=== PATIENT | female | born 1990 | race American Indian/Alaskan Native ===

== ENCOUNTER 2016-07-27 04:36 | Emergency (ER) | payer BC, MEDICAID ==
[2016-07-27 04:41] VITALS: BMI 41.3
[2016-07-27] MEDS ORDERED: Sodium Chloride 0.9% 1,000 ML IV STA (04:50)
--- NOTE | 2016-07-27 04:58 | ED PDOC ---
Arrival/HPI - General Chief Complaint: Abdominal Pain Time Seen by Provider: 07/27/16 04:37 Historian: Patient - History of Present Illness Narrative History of Present Illness (Text): 07/27/16 05:00 Sylvia Sellers, a 26 year old female presents to the emergency department complaining of worsening epigastric abdominal pain for the past two days. Patient is obese and reports nausea, vomiting and diarrhea. Patient denies hematochezia, shortness of breath, back pain, or any other complaints at this time. Time/Duration: < week Symptom Onset: Sudden Symptom Course: Unchanged Activities at Onset: Rest Modifying Factors (Text): none Context: Home Associated Symptoms (Text): nausea, vomit, diarrhea Past Medical History - Provider Review Nursing Documentation Reviewed: Yes - Infectious Disease Hx of Infectious Diseases: None - Tetanus Immunization Tetanus Immunization: Unknown - Cardiac Hx Cardiac Disorders: No - Pulmonary Hx Respiratory Disorders: Yes Hx Asthma: Yes Hx Bronchitis: Yes - Neurological Hx Neurological Disorder: Yes Hx Migraine: Yes - Renal Hx Renal Disorder: Yes Hx Kidney Stones: Yes - Endocrine/Metabolic Hx Endocrine Disorders: No - Hematological/Oncological Hx Blood Disorders: No - Integumentary Hx Dermatological Disorder: No - Musculoskeletal/Rheumatological Hx Musculoskeletal Disorders: No Hx Falls: No - Gastrointestinal Hx Gastrointestinal Disorders: No - Genitourinary/Gynecological Hx Genitourinary Disorders: No - Psychiatric Hx Psychophysiologic Disorder: No Hx Substance Use: No - Past Surgical History Past Surgical History: No Previous - Surgical History Other/Comment: episiotomy; lithotripsy - Anesthesia Hx Anesthesia: Yes Hx Anesthesia Reactions: No Hx Malignant Hyperthermia: No - Suicidal Assessment Feels Threatened In Home Enviroment: No Family/Social History - Physician Review Nursing Documentation Reviewed: Yes Family/Social History: No Known Family HX Smoking Status: Never Smoked Hx Alcohol Use: Yes Hx Substance Use: No Hx Substance Use Treatment: No Allergies/Home Meds Allergies/Adverse Reactions: Allergies amoxicillin trihydrate [From Augmentin] Allergy (Verified 07/27/16 04:45) SWELLING mushroom Allergy (Verified 07/27/16 04:46) SWELLING potassium clavulanate [From Augmentin] Allergy (Verified 07/27/16 04:45) SWELLING Home Medications: Home Meds Medication Instructions Recorded Confirmed Albuterol HFA [Ventolin HFA 90 2 puff INH PRN PRN 10/05/15 07/27/16 mcg/actuation (8 g)] SUMAtriptan [Imitrex Tab] 1 tab PO PRN PRN 10/05/15 07/27/16 Review of Systems - Physician Review All systems were reviewed & negative as marked: Yes - Review of Systems Respiratory: absent: SOB Gastrointestinal: Abdominal Pain (epigastric), Diarrhea, Nausea, Vomiting. absent: Hematochezia Musculoskeletal: absent: Back Pain Physical Exam Vital Signs Reviewed: Yes Vital Signs Temp Pulse Resp BP Pulse Ox 07/27/16 09:55 99 F 62 18 106/62 98 07/27/16 07:26 99.1 F 86 18 110/58 L 97 07/27/16 06:32 95 H 20 106/59 L 99 07/27/16 05:18 98.7 F 104 H 17 113/56 L 100 07/27/16 05:00 98.5 F 101 H 18 111/56 L 97 07/27/16 04:37 98 F 104 H 18 113/56 L 100 Temperature: Afebrile Blood Pressure: Hypotensive Pulse: Tachycardic Respiratory Rate: Normal Appearance: Positive for: Well-Appearing, Non-Toxic, Comfortable Pain Distress: None Mental Status: Positive for: Alert and Oriented X 3 - Systems Exam Head: Present: Atraumatic, Normocephalic Pupils: Present: PERRL Extroacular Muscles: Present: EOMI Conjunctiva: Present: Normal Mouth: Present: Moist Mucous Membranes Neck: Present: Normal Range of Motion Respiratory/Chest: Present: Clear to Auscultation, Good Air Exchange. No: Respiratory Distress, Accessory Muscle Use Cardiovascular: Present: Tachycardic. No: Murmurs Abdomen: Present: Tenderness (epigastric). No: Rebound, Guarding Upper Extremity: Present: Normal Inspection. No: Cyanosis, Edema Lower Extremity: Present: Normal Inspection. No: Edema Neurological: Present: GCS=15, CN II-XII Intact, Speech Normal Skin: Present: Warm, Dry, Normal Color. No: Rashes Psychiatric: Present: Alert, Oriented x 3, Normal Insight, Normal Concentration Medical Decision Making ED Course and Treatment: 07/27/16 05:00 Impression: 26 year old female with epigastric abdominal pain. Differential Diagnosis include but are not limited to: Plan: -- Urinalysis -- Labs -- Protonix, IV fluids, and Zofran -- Reassess and disposition Prior Visits: Notes and results from previous visits were reviewed. Patient was last presented to emergency department on 10/06/15 for evaluation of abdominal pain. Patient was seen by Dr. Quintana. Patient's CT abd/pelvis showed incomplete distention of the urinary bladder with prominent wall thickening; pericystic induration; cystitis cannot be excluded. Progress Notes: - Lab Interpretations Lab Results: 07/27/16 06:06 07/27/16 07:00 Lab Results 07/27/16 07:00: Sodium 138, Potassium 3.5 L, Chloride 105, Carbon Dioxide 22, Anion Gap 15, BUN 7, Creatinine 0.6, Est GFR ( Amer) > 60, Est GFR (Non- Af Amer) > 60, Random Glucose 107, Calcium 8.5, Total Bilirubin 0.6, AST 81 H, ALT 59 H, Alkaline Phosphatase 102, Total Protein 7.2, Albumin 3.7, Globulin 3.5 , Albumin/Globulin Ratio 1.1, Lipase 122 07/27/16 06:06: WBC 12.9 H D, RBC 4.38, Hgb 12.1, Hct 37.1, MCV 84.7, MCH 27.6, MCHC 32.6, RDW 14.4, Plt Count 448, MPV 10.4, Gran % 86.4 H, Lymph % (Auto) 7.4 L, [place] % (Auto) 5.3, Eos % (Auto) 0.7 L, Baso % (Auto) 0.2, Gran # 11.15 H, Lymph # 1.0 L, [place] # 0.7 H, Eos # 0.1, Baso # 0.02, PT 11.4, INR 1.06, APTT 22.7 L 07/27/16 05:10: Urine Color Yellow, Urine Appearance Cloudy, Urine pH 6.0, Ur Specific [place] >= 1.030, Urine Protein Trace H, Urine Glucose (UA) Negative, Urine Ketones Negative, Urine Blood Trace-intact H, Urine Nitrate Negative, Urine Bilirubin Negative, Urine Urobilinogen 0.2, Ur Leukocyte Esterase Moderate H, Urine RBC 0 - 2, Urine WBC 1 - 3, Ur Epithelial Cells Many, Urine Bacteria Mod, Urine HCG, Qual Negative - RAD Interpretation Radiology Orders: 07/27/16 06:54 ABD & PELVIS IV CONTRAST ONLY [CT] Stat - Medication Orders Current Medication Orders: Discontinued Medications Sodium Chloride (Sodium Chloride 0.9%) 1,000 mls @ 1,000 mls/hr IV .Q1H STA Stop: 07/27/16 05:49 Last Admin: 07/27/16 05:17 Dose: 1,000 MLS/HR eMAR Start Stop Document 07/27/16 05:17 [facility] (Rec: 07/27/16 05[id number] Intravenous Solution Start Date 07/27/16 Start Time 05:17 End Date 07/27/16 End time 06:17 Total Infusion Time 60 Iohexol (Omnipaque 350 100 Ml) Confirm Administered Dose 350 mg .ROUTE .STK-MED ONE Stop: 07/27/16 08:14 Ondansetron HCl (Zofran Inj) 4 mg IVP STAT STA Stop: 07/27/16 04:52 Last Admin: 07/27/16 05:17 Dose: 4 MG IVP Administration Document 07/27/16 05:17 [facility] (Rec: 07/27/16 05:17 [id number] Charges for Administration # of IVP Administrations 1 Pantoprazole Sodium (Protonix Inj) 40 mg IVP STAT STA Stop: 07/27/16 04:51 Last Admin: 07/27/16 05:17 Dose: 40 MG IVP Administration Document 07/27/16 05:17 [facility] (Rec: 07/27/16 05:17 [id number] Charges for Administration # of IVP Administrations 1 Potassium Chloride (K-Dur 20 Meq Er Tab) 20 meq PO STAT STA Stop: 07/27/16 09:42 Last Admin: 07/27/16 10:02 Dose: 20 MEQ - Scribe Statement The provider has reviewed the documentation as recorded by the Jagjit Parker All medical record entries made by the Jagjit were at my direction and personally dictated by me. I have reviewed the chart and agree that the record accurately reflects my personal performance of the history, physical exam, medical decision making, and the department course for this patient. I have also personally directed, reviewed, and agree with the discharge instructions and disposition. Disposition/Present on Arrival - Present on Arrival Any Indicators Present on Arrival: No History of DVT/PE: No History of Uncontrolled Diabetes: No Urinary Catheter: No History of Decub. Ulcer: No History Surgical Site Infection Following: None - Disposition Have Diagnosis and Disposition been Completed?: Yes Diagnosis: Abdominal pain Disposition: HOME/ ROUTINE Disposition Time: 07:00 Condition: IMPROVED Discharge Instructions (ExitCare): Gastroenteritis (DC), Acute Abdominal Pain ( DC) Additional Instructions: Ms Sellers, thank you for letting us take care of you today. Your provider was Dr. Fontaine and Dr. Mcnulty. You were treated for Abdominal Pain, Gastroenteritis. The emergency medical care you received today was directed at your acute symptoms. If you were prescribed any medication, please fill it and take as directed. It may take several days for your symptoms to resolve. Return to the Emergency Department if your symptoms worsen, do not improve, or if you have any other problems. Please contact your doctor or call one of the physicians/clinics you have been referred to that are listed on the Patient Visit Information form that is included in your discharge packet. Bring any paperwork you were given at discharge with you along with any medications you are taking to your follow up visit. Our treatment cannot replace ongoing medical care by a primary care provider (PCP) outside of the emergency department. Thank you for allowing the [facility] team to be part of your care today. If you had an X-Ray or CT scan: A Radiologist will review the ED reading if any change in treatment is needed we will contact you. If you had a blood, urine, or wound culture: It will take several days for the results, if any change in treatment is needed we will contact you. If you had an STI test: It will take 48 hours for the results. Please call after 1 week if you have not heard back. Prescriptions: Ranitidine HCl [Zantac] 150 mg PO BID PRN #30 tablet PRN Reason: Pain, Mild (1-3) Ondansetron ODT [Zofran ODT] 4 mg PO Q6 #14 odt Referrals: Katrina Arndt DO [Primary Care Provider] - Follow up with primary Forms: WORK NOTE
[2016-07-27 06:07] LABS: ADD MANUAL DIFF? NO
[2016-07-27 06:11] LABS: BASO # 0.02 K/mm3 (0.0-2.0); BASO % 0.2 % (0.0-3.0); EOS # 0.1 (0.0-0.7); EOS % 0.7 % (1.5-5.0); GRAN # 11.15 (1.4-6.5); GRAN % 86.4 % (50.0-68.0); HEMATOCRIT 37.1 % (36.0-48.0); LYMPH % 7.4 % (22.0-35.0); MEAN CELL VOLUME 84.7 fL (80.0-105.0); MEAN CORPUSCULAR HEMOGLOBIN 27.6 pg (25.0-35.0); MEAN CORPUSCULAR HGB CONC 32.6 g/dl (31.0-37.0); MEAN PLATELET VOLUME 10.4 fl (7.0-11.0); MONO # 0.7 (0.1-0.6); MONO % 5.3 % (1.0-6.0); PLATELET COUNT 448 10^3/uL (120.0-450.0); RED CELL DISTRIBUTION WIDTH 14.4 % (11.5-14.5); WHITE BLOOD COUNT 12.9 10^3/ul (4.5-11.0)
[2016-07-27 06:21] LABS: INR 1.06 (0.93-1.08); PARTIAL THROMBOPLASTIN TIME 22.7 Seconds (23.7-30.8)
[2016-07-27 07:11] LABS: URINE BILIRUBIN NEGATIVE (NEGATIVE); URINE BLOOD TRACE-INTACT (NEGATIVE); URINE GLUCOSE (UA) NEGATIVE (NEGATIVE); URINE KETONE NEGATIVE (NEGATIVE); URINE LEUKOCYTE ESTERASE MODERATE Leu/uL (NEGATIVE); URINE PROTEIN TRACE mg/dL (<30 mg/dL); URINE UROBILINOGEN 0.2 E.U./dL (<1 E.U./dL)
[2016-07-27 07:13] LABS: URINE COLOR YELLOW (YELLOW)
[2016-07-27 07:14] LABS: URINE APPEARANCE CLOUDY (CLEAR)
--- NOTE | 2016-07-27 07:17 | ED PDOC ---
Physical Exam Vital Signs Temp Pulse Resp BP Pulse Ox 07/27/16 07:26 99.1 F 86 18 110/58 L 97 07/27/16 06:32 95 H 20 106/59 L 99 07/27/16 05:18 98.7 F 104 H 17 113/56 L 100 07/27/16 05:00 98.5 F 101 H 18 111/56 L 97 07/27/16 04:37 98 F 104 H 18 113/56 L 100 Medical Decision Making ED Course and Treatment: 07/27/16 07:00 Patient signed out to me by Dr. Fontaine. Pending labs and CT results. Reevaluation and Disposition to follow. 07/27/16 09:32 Procedure: CT abdomen pelvis dated 07/27/2016 Dictator: Bairon Moyer MD Impression: Small involuting and or hemorrhagic right ovarian cyst. Mild fatty hepatic infiltration. No evidence of acute appendicitis. 07/27/16 09:47 On re-evaluation, the patient feels better and is in no acute distress. Patient was advised to avoid fatty and spicy foods. I have discussed the results and plan with the patient, who expresses understanding. Patient in agreement with plan to discharged home. Patient is stable for discharge. Patient was instructed to follow up with physician/clinic in 1-2 days or return if symptoms worsen or new concerning symptoms such as fever or localized pain to the lower abdomen arise. - Lab Interpretations Lab Results: 07/27/16 06:06 07/27/16 07:00 Lab Results 07/27/16 07:00: Sodium 138, Potassium 3.5 L, Chloride 105, Carbon Dioxide 22, Anion Gap 15, BUN 7, Creatinine 0.6, Est GFR ( Amer) > 60, Est GFR (Non- Af Amer) > 60, Random Glucose 107, Calcium 8.5, Total Bilirubin 0.6, AST 81 H, ALT 59 H, Alkaline Phosphatase 102, Total Protein 7.2, Albumin 3.7, Globulin 3.5 , Albumin/Globulin Ratio 1.1, Lipase 122 07/27/16 06:06: WBC 12.9 H D, RBC 4.38, Hgb 12.1, Hct 37.1, MCV 84.7, MCH 27.6, MCHC 32.6, RDW 14.4, Plt Count 448, MPV 10.4, Gran % 86.4 H, Lymph % (Auto) 7.4 L, [place] % (Auto) 5.3, Eos % (Auto) 0.7 L, Baso % (Auto) 0.2, Gran # 11.15 H, Lymph # 1.0 L, [place] # 0.7 H, Eos # 0.1, Baso # 0.02, PT 11.4, INR 1.06, APTT 22.7 L 07/27/16 05:10: Urine Color Yellow, Urine Appearance Cloudy, Urine pH 6.0, Ur Specific [place] >= 1.030, Urine Protein Trace H, Urine Glucose (UA) Negative, Urine Ketones Negative, Urine Blood Trace-intact H, Urine Nitrate Negative, Urine Bilirubin Negative, Urine Urobilinogen 0.2, Ur Leukocyte Esterase Moderate H, Urine RBC 0 - 2, Urine WBC 1 - 3, Ur Epithelial Cells Many, Urine Bacteria Mod, Urine HCG, Qual Negative - RAD Interpretation Narrative RAD Interpretations (Text): 07/27/16 09:32 Procedure: CT abdomen pelvis dated 07/27/2016 Dictator: Bairon Moyer MD FINDINGS: LOWER THORAX: No basilar infiltrate effusion or pneumothorax. There is a tiny hiatal hernia. Heart size is within range of normal. No significant pericardial effusion identified. LIVER: Liver exhibits normal size measuring 15 cm in CC dimension. Mild diffuse fatty hepatic infiltration. No obvious hepatic mass or collection. Portal and splenic veins are opacified. GALLBLADDER AND BILE DUCTS: The gallbladder is physiologically distended. No evidence of intraluminal gallbladder calculi. PANCREAS: The pancreas is unremarkable without mass collection or calcification. SPLEEN: The spleen exhibits normal size and attenuation pattern without mass collection or calcification. ADRENALS: There are no adrenal lesions. KIDNEYS AND URETERS: Kidneys exhibit symmetric nephrograms. No evidence of nephrolithiasis or hydronephrosis. BLADDER: Urinary bladder is incompletely distended which may account for slight thick- walled appearance. Possibility of cystitis not excluded. REPRODUCTIVE: The uterus is unremarkable. There appears to be a small involuting and or hemorrhagic cyst right ovary measuring approximately 11 mm. APPENDIX: The appendix appears unremarkable best seen on axial image number [id number]. No periappendiceal inflammatory changes are identified. BOWEL: Unremarkable. No obstruction. No gross mural thickening. PERITONEUM: Unremarkable. No fluid collection. No free air. Small fat containing umbilical hernia. LYMPH NODES: Unremarkable. No enlarged lymph nodes. VASCULATURE: Unremarkable. No aortic aneurysm. BONES: No fracture or destructive lesion. OTHER FINDINGS: None. Impression: Small involuting and or hemorrhagic right ovarian cyst. Mild fatty hepatic infiltration. No evidence of acute appendicitis. Radiology Orders: 07/27/16 06:54 ABD & PELVIS IV CONTRAST ONLY [CT] Stat - Medication Orders Current Medication Orders: Discontinued Medications Sodium Chloride (Sodium Chloride 0.9%) 1,000 mls @ 1,000 mls/hr IV .Q1H STA Stop: 07/27/16 05:49 Last Admin: 07/27/16 05:17 Dose: 1,000 MLS/HR eMAR Start Stop Document 07/27/16 05:17 [facility] (Rec: 07/27/16 05:17 [id number] Intravenous Solution Start Date 07/27/16 Start Time 05:17 End Date 07/27/16 End time 06:17 Total Infusion Time 60 Iohexol (Omnipaque 350 100 Ml) Confirm Administered Dose 350 mg .ROUTE .STK-MED ONE Stop: 07/27/16 08:14 Ondansetron HCl (Zofran Inj) 4 mg IVP STAT STA Stop: 07/27/16 04:52 Last Admin: 07/27/16 05:17 Dose: 4 MG IVP Administration Document 07/27/16 05:17 [facility] (Rec: 07/27/16 05:17 [facility] [id number]) Charges for Administration # of IVP Administrations 1 Pantoprazole Sodium (Protonix Inj) 40 mg IVP STAT STA Stop: 07/27/16 04:51 Last Admin: 07/27/16 05:17 Dose: 40 MG IVP Administration Document 07/27/16 05:17 [facility] (Rec: 07/27/16 05:17 [facility] [id number]) Charges for Administration # of IVP Administrations 1 Potassium Chloride (K-Dur 20 Meq Er Tab) 20 meq PO STAT STA Stop: 07/27/16 09:42 - Scribe Statement The provider has reviewed the documentation as recorded by the Gumaroibe Prerna Kidd Provider Attestation: All medical record entries made by the Scribe were at my direction and personally dictated by me. I have reviewed the chart and agree that the record accurately reflects my personal performance of the history, physical exam, medical decision making, and the department course for this patient. I have also personally directed, reviewed, and agree with the discharge instructions and disposition. Disposition/Present on Arrival - Present on Arrival Any Indicators Present on Arrival: No History of DVT/PE: No History of Uncontrolled Diabetes: No Urinary Catheter: No History of Decub. Ulcer: No History Surgical Site Infection Following: None - Disposition Have Diagnosis and Disposition been Completed?: Yes Diagnosis: Abdominal pain Disposition: HOME/ ROUTINE Disposition Time: 10:03 Patient Plan: Discharge Condition: IMPROVED Discharge Instructions (ExitCare): Gastroenteritis (DC), Acute Abdominal Pain ( DC) Additional Instructions: Ms Sellers, thank you for letting us take care of you today. Your provider was Dr. Fontaine and Dr. Mcnulty. You were treated for Abdominal Pain, Gastroenteritis. The emergency medical care you received today was directed at your acute symptoms. If you were prescribed any medication, please fill it and take as directed. It may take several days for your symptoms to resolve. Return to the Emergency Department if your symptoms worsen, do not improve, or if you have any other problems. Please contact your doctor or call one of the physicians/clinics you have been referred to that are listed on the Patient Visit Information form that is included in your discharge packet. Bring any paperwork you were given at discharge with you along with any medications you are taking to your follow up visit. Our treatment cannot replace ongoing medical care by a primary care provider (PCP) outside of the emergency department. Thank you for allowing the [facility] team to be part of your care today. If you had an X-Ray or CT scan: A Radiologist will review the ED reading if any change in treatment is needed we will contact you. If you had a blood, urine, or wound culture: It will take several days for the results, if any change in treatment is needed we will contact you. If you had an STI test: It will take 48 hours for the results. Please call after 1 week if you have not heard back. Prescriptions: Ranitidine HCl [Zantac] 150 mg PO BID PRN #30 tablet PRN Reason: Pain, Mild (1-3) Ondansetron ODT [Zofran ODT] 4 mg PO Q6 #14 odt Referrals: Katrina Arndt DO [Primary Care Provider] - Follow up with primary Forms: WORK NOTE
[2016-07-27 07:27] VITALS: RESP 18
[2016-07-27 07:32] LABS: URINE BACTERIA MOD (NEG); URINE EPITHELIAL CELLS MANY /hpf (0-5); URINE RBC 0 - 2 /hpf (0-2)
[2016-07-27 08:09] LABS: ALB/GLOB RATIO 1.1 (1.1-1.8); ALKALINE PHOSPHATASE 102 U/L (38-133); ALT/SGPT 59 U/L (7-56); AST/SGOT 81 U/L (15-39); BILIRUBIN,TOTAL 0.6 mg/dL (0.2-1.3); BLOOD UREA NITROGEN 7 mg/dL (7-21); CALCIUM 8.5 mg/dL (8.4-10.5); CARBON DIOXIDE 22 mmol/L (21-33); CHLORIDE 105 mmol/L (98-107); GFR AFRICAN-AMERICAN > 60; GLUCOSE,RANDOM 107 mg/dL (70-110); LIPASE 122 U/L (23-300); POTASSIUM 3.5 mmol/L (3.6-5.0); SODIUM 138 mmol/L (132-148); TOTAL PROTEIN 7.2 g/dL (5.8-8.3)
[2016-07-27] MEDS ORDERED: Iohexol 350 MG/100 ML VIAL ONE (08:13)
--- NOTE | 2016-07-27 09:39 | CT ---
PROCEDURE: CT abdomen pelvis dated 07/27/2016 HISTORY: right sided pain COMPARISON: None. TECHNIQUE: Contiguous axial images of the abdomen and pelvis performed in standard fashion following intravenous injection of approximately 100 cc of Omnipaque 350 contrast material. . Coronal and Sagittal reformats generated. Radiation dose: Total exam DLP = 1115.15 mGy-cm. This CT exam was performed using one or more of the following dose reduction techniques: Automated exposure control, adjustment of the mA and/or kV according to patient size, and/or use of iterative reconstruction technique. FINDINGS: LOWER THORAX: No basilar infiltrate effusion or pneumothorax. There is a tiny hiatal hernia. Heart size is within range of normal. No significant pericardial effusion identified. LIVER: Liver exhibits normal size measuring 15 cm in CC dimension. Mild diffuse fatty hepatic infiltration. No obvious hepatic mass or collection. Portal and splenic veins are opacified. GALLBLADDER AND BILE DUCTS: The gallbladder is physiologically distended. No evidence of intraluminal gallbladder calculi. PANCREAS: The pancreas is unremarkable without mass collection or calcification. SPLEEN: The spleen exhibits normal size and attenuation pattern without mass collection or calcification. ADRENALS: There are no adrenal lesions. KIDNEYS AND URETERS: Kidneys exhibit symmetric nephrograms. No evidence of nephrolithiasis or hydronephrosis. BLADDER: Urinary bladder is incompletely distended which may account for slight thick-walled appearance. Possibility of cystitis not excluded. REPRODUCTIVE: The uterus is unremarkable. There appears to be a small involuting and or hemorrhagic cyst right ovary measuring approximately 11 mm. APPENDIX: The appendix appears unremarkable best seen on axial image number [id number]. No periappendiceal inflammatory changes are identified. BOWEL: Unremarkable. No obstruction. No gross mural thickening. PERITONEUM: Unremarkable. No fluid collection. No free air. Small fat containing umbilical hernia. LYMPH NODES: Unremarkable. No enlarged lymph nodes. VASCULATURE: Unremarkable. No aortic aneurysm. BONES: No fracture or destructive lesion. OTHER FINDINGS: None. IMPRESSION: Small involuting and or hemorrhagic right ovarian cyst. Mild fatty hepatic infiltration. No evidence of acute appendicitis.
[2016-07-27] MEDS ORDERED: Potassium Chloride 20 mEq ER Tab PO STA (09:41)
[2016-07-27 09:56] VITALS: BP 106/62; PULSE 62; TEMP 99; O2SAT 98
== END 2016-07-27 10:03 | disposition home or self-care (01) ==
LOC: ED 04:36
DX: R10.9 Unspecified abdominal pain (principal)
CPT/HCPCS: 74177; 80053; 81001; 83690; 84703; 85025; 85610; 85730; 87086; 96361; 96374; 96375; 99284; C9113; J2405; J7040; Q9967

== ENCOUNTER 2017-06-25 09:10 | Emergency (ER) | payer MEDICAID ==
[2017-06-25 09:11] VITALS: BMI 41.3
[2017-06-25 09:23] VITALS: BP 108/63; PULSE 82; RESP 16; TEMP 98.7; O2SAT 99
--- NOTE | 2017-06-25 09:47 | ED PDOC ---
Arrival/HPI - General Chief Complaint: Headache Time Seen by Provider: 06/25/17 09:13 Historian: Patient - History of Present Illness Narrative History of Present Illness (Text): 06/25/17 09:44 This 27 yo female with pmh asthma, bronchitis, presents to this ED c/o sinuses pressure x 2 days. Patient also noted a productive cough. Patient denies sob, wheezing, skin rash, pierce, recent travel, or sick contact. Time/Duration: Other (see hpi) Context: Home Past Medical History - Provider Review Nursing Documentation Reviewed: Yes - Infectious Disease Hx of Infectious Diseases: None - Tetanus Immunization Tetanus Immunization: Unknown - Reproductive Menopause: No - Cardiac Hx Cardiac Disorders: No - Pulmonary Hx Respiratory Disorders: Yes Hx Asthma: Yes Hx Bronchitis: Yes - Neurological Hx Neurological Disorder: Yes Hx Migraine: Yes - HEENT Hx HEENT Disorder: No - Renal Hx Renal Disorder: Yes Hx Kidney Stones: Yes - Endocrine/Metabolic Hx Endocrine Disorders: No - Hematological/Oncological Hx Blood Disorders: No - Integumentary Hx Dermatological Disorder: No - Musculoskeletal/Rheumatological Hx Musculoskeletal Disorders: No Hx Falls: No - Gastrointestinal Hx Gastrointestinal Disorders: No - Genitourinary/Gynecological Hx Genitourinary Disorders: No - Psychiatric Hx Psychophysiologic Disorder: No Hx Substance Use: No - Past Surgical History Past Surgical History: No Previous - Surgical History Other/Comment: episiotomy; lithotripsy - Anesthesia Hx Anesthesia: Yes Hx Anesthesia Reactions: No Hx Malignant Hyperthermia: No - Suicidal Assessment Feels Threatened In Home Enviroment: No Family/Social History - Physician Review Nursing Documentation Reviewed: Yes Family/Social History: Other (noncontributory) Smoking Status: Never Smoked Hx Alcohol Use: Yes Frequency of alcohol use: Socially Hx Substance Use: No Hx Substance Use Treatment: No Allergies/Home Meds Allergies/Adverse Reactions: Allergies amoxicillin trihydrate [From Augmentin] Allergy (Verified 07/27/16 04:45) SWELLING mushroom Allergy (Verified 07/27/16 04:46) SWELLING potassium clavulanate [From Augmentin] Allergy (Verified 07/27/16 04:45) SWELLING Home Medications: Home Meds Medication Instructions Recorded Confirmed Albuterol HFA [Ventolin HFA 90 2 puff INH PRN PRN 10/05/15 06/25/17 mcg/actuation (8 g)] SUMAtriptan [Imitrex Tab] 1 tab PO PRN PRN 10/05/15 06/25/17 Rizatriptan Benzoate [Rizatriptan] 10 mg PO BID 06/25/17 06/25/17 Review of Systems - Review of Systems Constitutional: Normal. absent: Fatigue, Weight Change, Fevers Eyes: Normal ENT: Rhinorrhea, Sinus Congestion Respiratory: Cough. absent: SOB, Sputum, Wheezing Cardiovascular: Normal. absent: Chest Pain Gastrointestinal: Normal. absent: Abdominal Pain, Nausea, Vomiting Genitourinary Female: Normal. absent: Dysuria, Frequency, Hematuria, Urine Output Changes, Vaginal Bleeding, Vaginal Discharge Musculoskeletal: Normal. absent: Back Pain Skin: Normal. absent: Rash Neurological: Normal. absent: Headache, Dizziness, Focal Weakness, Gait Changes , Speech Changes, Facial Droop Endocrine: Normal Hemo/Lymphatic: Normal Psychiatric: Normal Physical Exam Vital Signs Temp Pulse Resp BP Pulse Ox 06/25/17 09:16 98.7 F 82 16 108/63 99 Temperature: Afebrile Blood Pressure: Normal Pulse: Regular Respiratory Rate: Normal Appearance: Positive for: Well-Appearing, Non-Toxic, Comfortable Pain Distress: None Mental Status: Positive for: Alert and Oriented X 3 - Systems Exam Head: Present: Atraumatic, Normocephalic, Other (mild b/l maxillary sinus tenderness, no facial erythema or swelling, or rash) Pupils: Present: PERRL Extroacular Muscles: Present: EOMI Conjunctiva: Present: Normal Ears: Present: Normal, NORMAL TM, Normal Canal. No: Erythema, TM Bulging, Fluid , TM Perf Mouth: Present: Moist Mucous Membranes Pharnyx: Present: Normal. No: ERYTHEMA, EXUDATE, TONSILS ENLARGED Nose (External): Present: Atraumatic Nose (Internal): Present: Rhinorrhea Neck: Present: Normal Range of Motion, Trachea Midline. No: Meningeal Signs, MIDLINE TENDERNESS, Paraspinal Tenderness, Lymphadenopathy Respiratory/Chest: Present: Clear to Auscultation, Good Air Exchange. No: Accessory Muscle Use, Wheezes, Retracting, Rhonchi Cardiovascular: Present: Regular Rate and Rhythm, Normal S1, S2. No: Murmurs Upper Extremity: Present: Normal Inspection, Normal ROM Lower Extremity: Present: Normal Inspection, Normal ROM Neurological: Present: GCS=15, CN II-XII Intact, Speech Normal, Motor Func Grossly Intact, Normal Sensory Function, Normal Cerebellar Funct, Gait Normal Skin: Present: Warm, Dry, Normal Color. No: Rashes Psychiatric: Present: Alert, Oriented x 3, Normal Insight, Normal Concentration Medical Decision Making ED Course and Treatment: 06/25/17 09:48 Re-evaluation. Patient feels better. Discussed results and plan with patient who expresses understanding. All questions answered and there is agreement with the plan to discharge home with instructions. Patient stable for discharge. Return if symptoms persist or worsen. Re-evaluation Time: 09:48 Reassessment Condition: Re-examined, Improved Disposition/Present on Arrival - Present on Arrival Any Indicators Present on Arrival: No History of DVT/PE: No History of Uncontrolled Diabetes: No Urinary Catheter: No History of Decub. Ulcer: No History Surgical Site Infection Following: None - Disposition Have Diagnosis and Disposition been Completed?: Yes Diagnosis: Acute sinusitis, Bronchitis Disposition: HOME/ ROUTINE Disposition Time: 09:50 Patient Plan: Discharge Condition: GOOD Discharge Instructions (ExitCare): Sinusitis, Adult (DC) Additional Instructions: Call private doctor for follow up visit in 1-2 days. Take medication as instructed. return to emergency if symptoms worsen. Do not drive or operate machinery for at least 10 hours when you take cough medicine with codeine Prescriptions: Azithromycin [Z-Francisco] 250 mg PO DAILY #6 tab Fluticasone Propionate [Flonase] 1 actuation NS DAILY #1 bottle Promethazine/Codeine [Codeine/Promethazine 10 MG/5 Ml-6.25 MG/5 Ml] 5 ml PO Q4H PRN #120 ml PRN Reason: Cough And Congestion Referrals: Katrina Arndt DO [Primary Care Provider] - Follow up with primary Forms: [facility] (Irish), WORK NOTE
== END 2017-06-25 10:14 | disposition home or self-care (01) ==
LOC: ED 09:10
DX: J01.90 Acute sinusitis, unspecified (principal); J40 Bronchitis, not specified as acute or chronic

== ENCOUNTER 2017-07-24 13:52 | Emergency (ER) | payer MEDICAID ==
[2017-07-24 14:06] VITALS: BMI 42.0
[2017-07-24 14:12] VITALS: RESP 18; TEMP 98.9
--- NOTE | 2017-07-24 15:19 | ED PDOC ---
Arrival/HPI - General Chief Complaint: Back Pain Time Seen by Provider: 07/24/17 15:09 Historian: Patient - History of Present Illness Narrative History of Present Illness (Text): 07/24/17 15:09 This 27 yo female with a pmh renal stones, presents to this ED c/o right flank pain x 2 days. Patient stated pain is constant with intermittent episode of sharp pain. Patient stated pain is not relief by anything, only by positioning in a "certain way". Denies fever, sob, cp, abdominal pain, urinary symptoms, nausea, vomiting, or abnormal gait. Time/Duration: Other (see hpi) Context: Home Past Medical History - Provider Review Nursing Documentation Reviewed: Yes - Infectious Disease Hx of Infectious Diseases: None - Tetanus Immunization Tetanus Immunization: Unknown - Cardiac Hx Cardiac Disorders: No - Pulmonary Hx Respiratory Disorders: Yes Hx Asthma: Yes Hx Bronchitis: Yes - Neurological Hx Neurological Disorder: Yes Hx Migraine: Yes - HEENT Hx HEENT Disorder: No - Renal Hx Renal Disorder: Yes Hx Kidney Stones: Yes - Endocrine/Metabolic Hx Endocrine Disorders: No - Hematological/Oncological Hx Blood Disorders: No - Integumentary Hx Dermatological Disorder: No - Musculoskeletal/Rheumatological Hx Musculoskeletal Disorders: No Hx Falls: No - Gastrointestinal Hx Gastrointestinal Disorders: No - Genitourinary/Gynecological Hx Genitourinary Disorders: No - Psychiatric Hx Psychophysiologic Disorder: No Hx Substance Use: No - Past Surgical History Past Surgical History: No Previous - Surgical History Other/Comment: episiotomy; lithotripsy - Anesthesia Hx Anesthesia: Yes Hx Anesthesia Reactions: No Hx Malignant Hyperthermia: No - Suicidal Assessment Feels Threatened In Home Enviroment: No Family/Social History - Physician Review Nursing Documentation Reviewed: Yes Family/Social History: Other (noncontributory) Smoking Status: Never Smoked Hx Alcohol Use: Yes Hx Substance Use: No Hx Substance Use Treatment: No Allergies/Home Meds Allergies/Adverse Reactions: Allergies amoxicillin trihydrate [From Augmentin] Allergy (Verified 07/24/17 14:06) SWELLING mushroom Allergy (Verified 07/24/17 14:06) SWELLING potassium clavulanate [From Augmentin] Allergy (Verified 07/24/17 14:06) SWELLING Home Medications: Home Meds Medication Instructions Recorded Confirmed Albuterol HFA [Ventolin HFA 90 2 puff INH PRN PRN 10/05/15 07/24/17 mcg/actuation (8 g)] Review of Systems - Review of Systems Constitutional: Normal. absent: Fatigue, Weight Change, Fevers Eyes: Normal ENT: Normal Respiratory: Normal. absent: SOB, Cough Cardiovascular: Normal. absent: Chest Pain Gastrointestinal: Other (right flank pain). absent: Nausea, Vomiting Genitourinary Female: Normal. absent: Dysuria, Frequency, Hematuria, Vaginal Bleeding, Vaginal Discharge Musculoskeletal: Normal Skin: Normal Neurological: Normal. absent: Headache, Dizziness, Focal Weakness, Gait Changes , Speech Changes, Facial Droop, Disequilibrium Endocrine: Normal Hemo/Lymphatic: Normal Psychiatric: Normal Physical Exam Vital Signs Temp Pulse Resp BP Pulse Ox 07/24/17 20:44 71 18 126/78 100 07/24/17 14:08 98.9 F 79 18 112/78 99 Temperature: Afebrile Blood Pressure: Normal Pulse: Regular Respiratory Rate: Normal Appearance: Positive for: Well-Appearing, Non-Toxic, Comfortable Pain Distress: None Mental Status: Positive for: Alert and Oriented X 3 - Systems Exam Head: Present: Atraumatic, Normocephalic Pupils: Present: PERRL Extroacular Muscles: Present: EOMI Conjunctiva: Present: Normal Mouth: Present: Moist Mucous Membranes Neck: Present: Normal Range of Motion. No: Meningeal Signs Respiratory/Chest: Present: Clear to Auscultation, Good Air Exchange. No: Respiratory Distress, Accessory Muscle Use Cardiovascular: Present: Regular Rate and Rhythm, Normal S1, S2. No: Murmurs Abdomen: No: Tenderness, Distention, Peritoneal Signs Back: Present: Normal Inspection. No: CVA Tenderness, Midline Tenderness, Paraspinal Tenderness, Pain with Leg Raise Upper Extremity: Present: Normal Inspection, Normal ROM, Neurovascularly Intact , Capillary Refill < 2s. No: Cyanosis, Edema Lower Extremity: Present: Normal Inspection, NORMAL PULSES, Normal ROM. No: Edema Neurological: Present: GCS=15, CN II-XII Intact, Speech Normal, Motor Func Grossly Intact, Normal Sensory Function, Normal Cerebellar Funct, Gait Normal Skin: Present: Warm, Dry, Normal Color. No: Rashes Psychiatric: Present: Alert, Oriented x 3, Normal Insight, Normal Concentration Medical Decision Making ED Course and Treatment: 07/24/17 21:11 Re-evaluation. Patient feels better. Discussed results and plan with patient who expresses understanding. All questions answered and there is agreement with the plan to discharge home with instructions. Patient stable for discharge. Return if symptoms persist or worsen. Re-evaluation Time: 21:11 Reassessment Condition: Re-examined, Improved - Lab Interpretations Lab Results: 07/24/17 17:30 07/24/17 17:30 Lab Results 07/24/17 17:30: Sodium 140, Potassium 3.9, Chloride 103, Carbon Dioxide 23, Anion Gap 19, BUN 10, Creatinine 0.6 L, Est GFR ( Amer) > 60, Est GFR ( Non-Af Amer) > 60, Random Glucose 80, Calcium 10.1, Total Bilirubin 0.2, AST 34 , ALT 22, Alkaline Phosphatase 97, Total Protein 8.3, Albumin 4.5, Globulin 3.7 , Albumin/Globulin Ratio 1.2 07/24/17 17:30: WBC 10.6, RBC 4.22, Hgb 11.2 L, Hct 34.8 L, MCV 82.5, MCH 26.5, MCHC 32.2, RDW 15.8 H, Plt Count 443, MPV 9.6, Gran % 50.3, Lymph % (Auto) 41.0 H, [place] % (Auto) 4.9, Eos % (Auto) 3.5, Baso % (Auto) 0.3, Gran # 5.30, Lymph # (Auto) 4.3 H, [place] # (Auto) 0.5, Eos # (Auto) 0.4, Baso # (Auto) 0.03 07/24/17 16:10: Urine Color Yellow, Urine Appearance Sl cloudy, Urine pH 6.5, Ur Specific [place] 1.020, Urine Protein Negative, Urine Glucose (UA) Negative, Urine Ketones Negative, Urine Blood Negative, Urine Nitrate Negative, Urine Bilirubin Negative, Urine Urobilinogen 0.2, Ur Leukocyte Esterase Moderate H, Urine RBC 0 - 2, Urine WBC 2 - 5, Ur Epithelial Cells 3 - 4, Urine Bacteria Few I have reviewed the lab results: Yes Interpretation: No clinic. lab abnormalty - RAD Interpretation Narrative RAD Interpretations (Text): 07/24/17 21:11 CT Scan ABD PELVIS W/O PO OR IV CONT Exam Date: 07/24/17 FINDINGS: Lung bases: No acute abnormality as visualized. ABDOMEN: Liver: No acute abnormality as visualized. Gallbladder and bile ducts: No acute abnormality as visualized. Pancreas: No acute abnormality as visualized. Spleen: No splenomegaly. Adrenals: No acute abnormality as visualized. Kidneys and ureters: No hydroureteronephrosis. Question punctate calculus in the distal left ureter. Stomach and bowel: Evaluation limited without enteric contrast. No obstruction. No definitive focus of acute inflammation. Appendix: No findings to suggest acute appendicitis. PELVIS: Bladder: Collapsed, limiting evaluation. Reproductive: Retroverted uterus. ABDOMEN and PELVIS: Intraperitoneal space: No free air. No significant fluid collection. Bones/joints: No acute abnormality as visualized. Soft tissues: Small fat-containing umbilical hernia. Vasculature: No acute abnormality as visualized. No abdominal aortic aneurysm. Lymph nodes: Again noted is prominence of mesenteric nodes. IMPRESSION: No hydroureteronephrosis. Question punctate calculus in the distal left ureter. Again noted is prominence of mesenteric nodes. Please note evaluation for underlying visceral lesions/abnormalities limited without intravenous contrast. Dictated By: Honey Perez MD Dictated Date/Time: 07/24/172033 Signed By: Honey Perez Date Signed: 2033 Transcribed By: NICK Transcribe Date/Time : 07/24/172033 SONNAD/PAUL Radiology Orders: 07/24/17 15:19 ABD & PELVIS W/O PO OR IV CONT [CT] Stat - Medication Orders Current Medication Orders: Discontinued Medications Ketorolac Tromethamine (Toradol) 15 mg IVP STAT STA Stop: 07/24/17 15:21 Last Admin: 07/24/17 17:33 Dose: 15 mg MAR Pain Assessment Document 07/24/17 17:33 LA (Rec: 07/24/17 17:33 LA [id number]) Pain Reassessment Is this a pain reassessment? No Sleep Is patient sleeping during reassessment? No Presence of Pain Presence of Pain Yes Pain Scale Used Pain Scale Used Numeric Location Left, Right or Bilateral Right Upper or Lower Lower Pain Location Body Site Back Description Description Throbbing Pain Behavior Guarding IVP Administration Document 07/24/17 17:33 LA (Rec: 07/24/17 17:33 LA [id number]) Charges for Administration # of IVP Administrations 1 Nitrofurantoin Macrocrystals (Macrobid) 100 mg PO STAT STA PRN Reason: Protocol Stop: 07/24/17 21:13 Disposition/Present on Arrival - Present on Arrival Any Indicators Present on Arrival: No History of DVT/PE: No History of Uncontrolled Diabetes: No Urinary Catheter: No History of Decub. Ulcer: No History Surgical Site Infection Following: None - Disposition Have Diagnosis and Disposition been Completed?: Yes Diagnosis: Flank pain, Ureterolithiasis, Acute cystitis Disposition: HOME/ ROUTINE Disposition Time: 21:13 Patient Plan: Discharge Condition: IMPROVED Discharge Instructions (ExitCare): Kidney Stones (DC), Acute Cystitis (DC) Additional Instructions: Call dr. Hartman Urologist for follow up visit in 2-3 days. Take medication as instructed with food. Return to emergency if pain worsen. Prescriptions: Naproxen 500 mg PO BID PRN #14 tab PRN Reason: Pain, Severe (8-10) Nitrofurantoin Macrocrystals [Macrobid] 100 mg PO BID #14 cap Tamsulosin [Flomax] 0.4 mg PO DAILY #10 cap Referrals: Katrina Arndt DO [Primary Care Provider] - Follow up with primary Daren Hartman MD [Staff Provider] - Follow up with primary Forms: [facility] (Wolof), WORK NOTE
[2017-07-24 16:13] LABS: PH,URINE 6.5 (4.7-8.0); URINE BILIRUBIN NEGATIVE (NEGATIVE); URINE BLOOD NEGATIVE (NEGATIVE); URINE GLUCOSE (UA) NEGATIVE (NEGATIVE); URINE LEUKOCYTE ESTERASE MODERATE Leu/uL (NEGATIVE); URINE PROTEIN NEGATIVE mg/dL (<30 mg/dL); URINE UROBILINOGEN 0.2 E.U./dL (<1 E.U./dL)
[2017-07-24 16:16] LABS: URINE APPEARANCE SL CLOUDY (CLEAR); URINE COLOR YELLOW (YELLOW)
[2017-07-24 16:41] LABS: URINE BACTERIA FEW (NEG); URINE RBC 0 - 2 /hpf (0-2)
[2017-07-24 17:58] LABS: BASO # 0.03 K/mm3 (0.0-2.0); BASO % 0.3 % (0.0-3.0); EOS # 0.4 (0.0-0.7); EOS % 3.5 % (1.5-5.0); GRAN # 5.3 (1.4-6.5); GRAN % 50.3 % (50.0-68.0); HEMOGLOBIN 11.2 g/dL (12.0-16.0); LYMPH # 4.3 (1.2-3.4); MEAN CELL VOLUME 82.5 fl (80.0-105.0); MEAN CORPUSCULAR HEMOGLOBIN 26.5 pg (25.0-35.0); MEAN CORPUSCULAR HGB CONC 32.2 g/dl (31.0-37.0); MEAN PLATELET VOLUME 9.6 fl (7.0-11.0); MONO # 0.5 (0.1-0.6); MONO % 4.9 % (1.0-6.0); RBC 4.22 10^6/uL (3.5-6.1); RED CELL DISTRIBUTION WIDTH 15.8 % (11.5-14.5); WHITE BLOOD COUNT 10.6 10^3/ul (4.5-11.0)
[2017-07-24 18:08] LABS: ALB/GLOB RATIO 1.2 (1.1-1.8); ALBUMIN 4.5 g/dL (3.0-4.8); ALT/SGPT 22 U/L (7-56); AST/SGOT 34 U/L (14-36); BLOOD UREA NITROGEN 10 mg/dL (7-21); CALCIUM 10.1 mg/dL (8.4-10.5); GFR AFRICAN-AMERICAN > 60; GFR NON-AFRICAN AMERICAN > 60
--- NOTE | 2017-07-24 20:34 | CT ---
EXAM: CT Abdomen and Pelvis Without Intravenous Contrast CLINICAL HISTORY: 27 years old, female; Pain; Abdominal pain; Flank; Right; Prior surgery; Surgery type: Lithotripsy; Additional info: Right flank pain TECHNIQUE: Axial computed tomography images of the abdomen and pelvis without intravenous contrast. All CT scans at this facility use one or more dose reduction techniques, viz.: automated exposure control; ma/kV adjustment per patient size (including targeted exams where dose is matched to indication; i.e. head); or iterative reconstruction technique. Coronal and sagittal reformatted images were created and reviewed. COMPARISON: CT - ABD PELVIS IV CONTRAST ONLY 2016-07-27 08:15 FINDINGS: Lung bases: No acute abnormality as visualized. ABDOMEN: Liver: No acute abnormality as visualized. Gallbladder and bile ducts: No acute abnormality as visualized. Pancreas: No acute abnormality as visualized. Spleen: No splenomegaly. Adrenals: No acute abnormality as visualized. Kidneys and ureters: No hydroureteronephrosis. Question punctate calculus in the distal left ureter. Stomach and bowel: Evaluation limited without enteric contrast. No obstruction. No definitive focus of acute inflammation. Appendix: No findings to suggest acute appendicitis. PELVIS: Bladder: Collapsed, limiting evaluation. Reproductive: Retroverted uterus. ABDOMEN and PELVIS: Intraperitoneal space: No free air. No significant fluid collection. Bones/joints: No acute abnormality as visualized. Soft tissues: Small fat-containing umbilical hernia. Vasculature: No acute abnormality as visualized. No abdominal aortic aneurysm. Lymph nodes: Again noted is prominence of mesenteric nodes. IMPRESSION: No hydroureteronephrosis. Question punctate calculus in the distal left ureter. Again noted is prominence of mesenteric nodes. Please note evaluation for underlying visceral lesions/abnormalities limited without intravenous contrast.
[2017-07-24 20:45] VITALS: BP 126/78; PULSE 71; O2SAT 100
== END 2017-07-24 21:23 | disposition home or self-care (01) ==
LOC: ED 13:52
DX: N20.1 Calculus of ureter (principal); N30.00 Acute cystitis without hematuria; R10.9 Unspecified abdominal pain
CPT/HCPCS: 74176; 80053; 81001; 85025; 87086; 96374; 99283; J1885

== ENCOUNTER 2017-08-12 22:44 | Emergency (ER) | payer MEDICAID ==
[2017-08-12 22:44] VITALS: BMI 42.0
[~2017-08-12 22:44] MED LIST: Famotidine 20mg/50ml 20 MG/50 ML BAG IVPB STA
[2017-08-12] MEDS ORDERED: Sodium Chloride 0.9% 1,000 ML IV STA (23:57)
--- NOTE | 2017-08-13 00:13 | ED PDOC ---
Arrival/HPI <Nima Ellis - Last Filed: 08/13/17 03:24> - General Historian: Patient <Harjit Quintanilla - Last Filed: 08/14/17 23:20> - General Chief Complaint: Abdominal Pain Time Seen by Provider: 08/12/17 23:40 - History of Present Illness Narrative History of Present Illness (Text): 08/13/17 00:00 27yo morbidly female with no PMHx who present with complaint of burning epigastric pain. States this is usually after eating breakfast x one week. She also report black stool x days. +Dyspepsia and flatulence. States she took Tums without relieve. She also report diarrhea x 2days. She denies fever, chills, nausea, vomiting, hematemesis, chest pain, SOB, urinary symptoms, any other complaint. (Harjit Quintanilla) Past Medical History - Provider Review Nursing Documentation Reviewed: Yes - Infectious Disease Hx of Infectious Diseases: None - Tetanus Immunization Tetanus Immunization: Unknown - Cardiac Hx Cardiac Disorders: No - Pulmonary Hx Respiratory Disorders: Yes Hx Asthma: Yes Hx Bronchitis: Yes - Neurological Hx Neurological Disorder: Yes Hx Migraine: Yes - HEENT Hx HEENT Disorder: No - Renal Hx Renal Disorder: Yes Hx Kidney Stones: Yes - Endocrine/Metabolic Hx Endocrine Disorders: No - Hematological/Oncological Hx Blood Disorders: No - Integumentary Hx Dermatological Disorder: No - Musculoskeletal/Rheumatological Hx Musculoskeletal Disorders: No Hx Falls: No - Gastrointestinal Hx Gastrointestinal Disorders: No - Genitourinary/Gynecological Hx Genitourinary Disorders: No - Psychiatric Hx Psychophysiologic Disorder: No Hx Substance Use: No - Past Surgical History Past Surgical History: No Previous - Surgical History Other/Comment: episiotomy; lithotripsy - Anesthesia Hx Anesthesia: Yes Hx Anesthesia Reactions: No Hx Malignant Hyperthermia: No - Suicidal Assessment Feels Threatened In Home Enviroment: No <Harjit Quintanilla - Last Filed: 08/14/17 23:20> Family/Social History - Physician Review Nursing Documentation Reviewed: Yes Family/Social History: Unknown Family HX Smoking Status: Never Smoked Hx Alcohol Use: Yes Hx Substance Use: No Hx Substance Use Treatment: No <Harjit Quintanilla - Last Filed: 08/14/17 23:20> Allergies/Home Meds <Nima Ellis - Last Filed: 08/13/17 03:24> <Harjit Quintanilla A - Last Filed: 08/14/17 23:20> Allergies/Adverse Reactions: Allergies amoxicillin trihydrate [From Augmentin] Allergy (Verified 08/13/17 03:25) SWELLING mushroom Allergy (Verified 08/13/17 03:25) SWELLING potassium clavulanate [From Augmentin] Allergy (Verified 08/13/17 03:25) SWELLING Home Medications: Home Meds Medication Instructions Recorded Confirmed SUMAtriptan [Imitrex Tab] 25 mg PO PRN PRN 08/12/17 08/12/17 Review of Systems - Physician Review All systems were reviewed & negative as marked: Yes - Review of Systems Constitutional: Normal Eyes: Normal ENT: Normal Respiratory: Normal Cardiovascular: Normal Gastrointestinal: Abdominal Pain, Diarrhea. absent: Constipation, Nausea, Vomiting, Hematochezia, Hematemesis Genitourinary Female: Normal Musculoskeletal: Normal Skin: Normal Neurological: Normal Endocrine: Normal Hemo/Lymphatic: Normal Psychiatric: Normal <Harjit Quintanilla A - Last Filed: 08/14/17 23:20> Physical Exam Vital Signs Reviewed: Yes Temperature: Afebrile Blood Pressure: Normal Pulse: Regular Respiratory Rate: Normal Appearance: Positive for: Well-Appearing, Non-Toxic, Comfortable Pain Distress: None Mental Status: Positive for: Alert and Oriented X 3 - Systems Exam Head: Present: Atraumatic, Normocephalic Pupils: Present: PERRL Extroacular Muscles: Present: EOMI Conjunctiva: Present: Normal Mouth: Present: Moist Mucous Membranes Neck: Present: Normal Range of Motion Respiratory/Chest: Present: Clear to Auscultation, Good Air Exchange. No: Respiratory Distress, Accessory Muscle Use Cardiovascular: Present: Regular Rate and Rhythm, Normal S1, S2. No: Murmurs Abdomen: Present: Tenderness (Epigastric), Other (Soft). No: Distention, Peritoneal Signs, Rebound, Guarding, McBurney's Point Tender, Rovsing's Sign Present Back: Present: Normal Inspection Upper Extremity: Present: Normal Inspection. No: Cyanosis, Edema Lower Extremity: Present: Normal Inspection. No: Edema Neurological: Present: GCS=15, CN II-XII Intact, Speech Normal Skin: Present: Warm, Dry, Normal Color. 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 The liver measures 15.5 cm in length. Gallbladder: The gallbladder is contracted. The gallbladder wall thickness is at the upper limits of normal. No shadowing gallstones are visualized. Common bile duct: The common bile duct measures 0.3 cm in diameter, which is within normal limits. Pancreas: Limited visualization. Kidneys: The right kidney measures 10.2 x 4.7 x 5.9 cm. The left kidney measures 9.3 x 5.4 x 6.4 cm. No shadowing stones. No hydronephrosis. Spleen: The spleen measures 8.4 x 4.0 x 4.5 cm and is normal in echotexture. Aorta: The visualized segments of the abdominal aorta are normal in caliber. Inferior vena cava: The visualized segment of the IVC is patent. IMPRESSION: 1. The liver is increased in echogenicity, most commonly due to fatty infiltration, but other chronic liver diseases may have a similar appearance. 2. The gallbladder is contracted. The gallbladder wall thickness is at the upper limits of normal. No shadowing gallstones are visualized. 3. Additional findings described above. (Nima Ellis) - Lab Interpretations Lab Results: 08/13/17 00:35 08/13/17 00:35 Lab Results 08/13/17 00:42: Urine Color Yellow, Urine Appearance Sl cloudy, Urine pH 6.0, Ur Specific [place] >= 1.030, Urine Protein Trace H, Urine Glucose (UA) Negative , Urine Ketones Negative, Urine Blood Negative, Urine Nitrate Negative, Urine Bilirubin Negative, Urine Urobilinogen 0.2, Ur Leukocyte Esterase Negative, Urine RBC 0 - 2, Urine WBC 1 - 3, Ur Epithelial Cells 3 - 4, Urine Bacteria Mod 08/13/17 00:35: Sodium 140, Potassium 3.9, Chloride 105, Carbon Dioxide 24, Anion Gap 16, BUN 11, Creatinine 0.6 L, Est GFR ( Amer) > 60, Est GFR ( Non-Af Amer) > 60, Random Glucose 115 H, Calcium 9.7, Magnesium 2.0, Total Bilirubin 0.2, AST 41 H D, ALT 33, Alkaline Phosphatase 95, Total Protein 8.4 H , Albumin 4.8, Globulin 3.6, Albumin/Globulin Ratio 1.3, Lipase 242 08/13/17 00:35: PT 11.3, INR 0.99, APTT 29.5 08/13/17 00:35: WBC 9.7, RBC 4.24, Hgb 11.5 L, Hct 35.1 L, MCV 82.8, MCH 27.1, MCHC 32.8, RDW 15.2 H, Plt Count 411, MPV 9.7, Gran % 44.2 L, Lymph % (Auto) 43.9 H, Sampson % (Auto) 4.1, Eos % (Auto) 7.2 H, Baso % (Auto) 0.6, Gran # 4.28, Lymph # (Auto) 4.3 H, Sampson # (Auto) 0.4, Eos # (Auto) 0.7, Baso # (Auto) 0.06 - RAD Interpretation Radiology Orders: 08/13/17 01:41 ABDOMEN COMPLETE [US] Stat - Medication Orders Current Medication Orders: Discontinued Medications Sodium Chloride (Sodium Chloride 0.9%) 1,000 mls @ 1,000 mls/hr IV .Q1H STA Stop: 08/13/17 00:56 Last Admin: 08/13/17 00:43 Dose: 1,000 mls/hr eMAR Start Stop Document 08/13/17 00:43 MOLINA (Rec: 08/13/17 00:44 MOLINA [id number]) Intravenous Solution Start Date 08/13/17 Start Time 00:44 End Date 08/13/17 Famotidine (Pepcid 20mg/50ml Premix) 20 mg in 50 mls @ 100 mls/hr IVPB STAT STA Stop: 08/12/17 00:29 Last Admin: 08/13/17 00:42 Dose: 100 mls/hr eMAR Start Stop Document 08/13/17 00:42 MOLINA (Rec: 08/13/17 00:43 MOLINA [id number]) Intravenous Solution Start Date 08/13/17 Start Time 00:43 End Date 08/13/17 - PA / INSPECTOR AND TESTER / Resident Statement VISHNU has reviewed & agrees with the documentation as recorded. VISHNU has examined the patient and agrees with the treatment plan. <Nima Ellis - Last Filed: 08/13/17 03:24> Disposition/Present on Arrival <Nima Ellis - Last Filed: 08/13/17 03:24> - Present on Arrival Any Indicators Present on Arrival: No History of DVT/PE: No History of Uncontrolled Diabetes: No Urinary Catheter: No History of Decub. 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
[2017-08-13 00:49] LABS: BASO # 0.06 K/mm3 (0.0-2.0); BASO % 0.6 % (0.0-3.0); EOS # 0.7 (0.0-0.7); EOS % 7.2 % (1.5-5.0); GRAN # 4.28 (1.4-6.5); GRAN % 44.2 % (50.0-68.0); HEMOGLOBIN 11.5 g/dL (12.0-16.0); LYMPH # 4.3 (1.2-3.4); LYMPH % 43.9 % (22.0-35.0); MEAN CELL VOLUME 82.8 fl (80.0-105.0); MEAN CORPUSCULAR HEMOGLOBIN 27.1 pg (25.0-35.0); MEAN CORPUSCULAR HGB CONC 32.8 g/dl (31.0-37.0); MEAN PLATELET VOLUME 9.7 fl (7.0-11.0); MONO # 0.4 (0.1-0.6); MONO % 4.1 % (1.0-6.0); RBC 4.24 10^6/uL (3.5-6.1); RED CELL DISTRIBUTION WIDTH 15.2 % (11.5-14.5); WHITE BLOOD COUNT 9.7 10^3/ul (4.5-11.0)
[2017-08-13 01:00] LABS: INR 0.99 (0.93-1.08); PARTIAL THROMBOPLASTIN TIME 29.5 Seconds (25.1-36.5); PROTHROMBIN TIME 11.3 SECONDS (9.4-12.5)
[2017-08-13 01:13] LABS: ALB/GLOB RATIO 1.3 (1.1-1.8); ALBUMIN 4.8 g/dL (3.0-4.8); ALT/SGPT 33 U/L (7-56); AST/SGOT 41 U/L (14-36); BLOOD UREA NITROGEN 11 mg/dL (7-21); CALCIUM 9.7 mg/dL (8.4-10.5); GFR AFRICAN-AMERICAN > 60; GFR NON-AFRICAN AMERICAN > 60; LIPASE 242 U/L (23-300)
[2017-08-13 02:04] LABS: URINE BILIRUBIN NEGATIVE (NEGATIVE); URINE BLOOD NEGATIVE (NEGATIVE); URINE GLUCOSE (UA) NEGATIVE (NEGATIVE); URINE LEUKOCYTE ESTERASE NEGATIVE Leu/uL (NEGATIVE); URINE PROTEIN TRACE mg/dL (<30 mg/dL); URINE UROBILINOGEN 0.2 E.U./dL (<1 E.U./dL)
[2017-08-13 02:11] VITALS: PULSE 75; RESP 18; O2SAT 100
[2017-08-13 02:12] LABS: URINE APPEARANCE SL CLOUDY (CLEAR); URINE COLOR YELLOW (YELLOW)
[2017-08-13 02:21] LABS: URINE BACTERIA MOD (NEG); URINE RBC 0 - 2 /hpf (0-2)
--- NOTE | 2017-08-13 02:56 | US ---
EXAM: US Abdomen Complete EXAM DATE/TIME: 08/13/2017 1:41 AM CLINICAL HISTORY: The patient age is 27 years old and is female; Pain; Abdominal pain; Epigastric; Additional info: Ruq/epigastric pain Facility exam id and description: Us abd abdomen complete TECHNIQUE: Real-time ultrasound of the abdomen (complete) with image documentation. COMPARISON: CT - ABD PELVIS W/O PO OR IV CONT 2017-07-24 19:21 FINDINGS: Liver: The liver is increased in echogenicity, most commonly due to fatty infiltration, but other chronic liver diseases may have a similar appearance. The liver measures 15.5 cm in length. Gallbladder: The gallbladder is contracted. The gallbladder wall thickness is at the upper limits of normal. No shadowing gallstones are visualized. Common bile duct: The common bile duct measures 0.3 cm in diameter, which is within normal limits. Pancreas: Limited visualization. Kidneys: The right kidney measures 10.2 x 4.7 x 5.9 cm. The left kidney measures 9.3 x 5.4 x 6.4 cm. No shadowing stones. No hydronephrosis. Spleen: The spleen measures 8.4 x 4.0 x 4.5 cm and is normal in echotexture. Aorta: The visualized segments of the abdominal aorta are normal in caliber. Inferior vena cava: The visualized segment of the IVC is patent. IMPRESSION: 1. The liver is increased in echogenicity, most commonly due to fatty infiltration, but other chronic liver diseases may have a similar appearance. 2. The gallbladder is contracted. The gallbladder wall thickness is at the upper limits of normal. No shadowing gallstones are visualized. 3. Additional findings described above.
[2017-08-13 03:25] VITALS: BP 101/77; TEMP 97.9
== END 2017-08-13 03:30 | disposition home or self-care (01) ==
LOC: ED 22:44
DX: R10.13 Epigastric pain (principal)
CPT/HCPCS: 76700; 80053; 81001; 83690; 83735; 85025; 85610; 85730; 99284; J7040